=== PATIENT | male | born 1960 | race Caucasian/White ===

== ENCOUNTER 2018-11-21 13:19 | Emergency (ER) | payer OTHER ==
[2018-11-21] MEDS: FAMOTIDINE 20 MG TAB PO (15:11)
[2018-11-21] MEDS: BELLADONNA/PHENOBARBITAL TAB PO (15:11)
[2018-11-21] MEDS: LIDOCAINE/MYLANTA 40 ML BTL PO (15:11)
== END 2018-11-21 15:17 | disposition home or self-care (01) ==
LOC: E/R 15:17
DX: R10.13 Epigastric pain (principal); R11.10 Vomiting, unspecified
CPT/HCPCS: 99283; Z7502